=== PATIENT | female | born 1985 | race Two or more races ===

== ENCOUNTER 2017-06-06 18:44 | Emergency (ER) | payer MEDICAID ==
[~2017-06-06] VITALS: Ht 162.6 cm; Wt 59.0 kg
--- NOTE | 2017-06-06 19:28 | NUR ---
RECEIVED REPORT FOR [facility] FROM [facility]OX[facility] BARRAZA
--- NOTE | 2017-06-06 19:28 | NUR ---
PT BB SELF FROM HOME C/O N/V W/ ABD DISCOMFORT X THIS AM, FEELING WEAK. PT STATES HER DIARRHEA IS YELLOW IN COLOR AND ON AND OFF EMESIS SINCE MORNING. PT RESP EVEN AND NONE LABORED. SKIN PINK AND WARM. NO S/S OF ACUTE DISTRESS NOTED. ORAL MUCOSA PRESENT. PT PLACED ON MONITOR AND POX. AWAITING MD FOR EVAL.
[2017-06-06] MEDS ORDERED: IV NS 0.9% 1,000 ML BAG IV ONE (19:30)
[2017-06-06] MEDS ORDERED: ONDANSETRON HCL/PF 4 MG/2 ML VIAL ONE (19:30)
[2017-06-06] MEDS ORDERED: ONDANSETRON HCL/PF 4 MG/2 ML VIAL IVP ONE (19:30)
[2017-06-06 19:52] LABS: BASOPHILS # (AUTO) 0.1 /CMM (0.0-0.2); BASOPHILS % (AUTO) 0.4 % (0.0-2.0); HEMATOCRIT 38 % (33-45); HEMOGLOBIN 13.3 g/dL (11.5-14.8); LYMPHOCYTES # (AUTO) 0.4 /CMM (0.8-4.8); LYMPHOCYTES % (AUTO) 2.4 % (20.0-44.0); MEAN CORPUSCULAR HEMOGLOBIN 31 PG (26.0-33.0); MEAN CORPUSCULAR HGB CONC 35 g/dl (31.0-36.0); MEAN CORPUSCULAR VOLUME 87 fL (82-100); MONOCYTES # (AUTO) 0.2 /CMM (0.1-1.30); MONOCYTES % (AUTO) 1.5 % (2.0-12.0); NEUTROPHILS % (AUTO) 95.7 % (43.0-81.0); PLATELET COUNT (AUTO) 133 /CMM (150-450); RED BLOOD CELL COUNT(AUTO) 4.32 MIL/uL (4.0-5.2); WHITE BLOOD COUNT (AUTO) 14.7 K/uL (4.3-11.0)
[2017-06-06 19:57] LABS: INR 0.95 (0.85-1.15)
[2017-06-06 20:00] LABS: CREATININE 0.6 mg/dL (0.6-1.3); POTASSIUM 3.6 mmol/L (3.5-5.1)
[2017-06-06 20:05] LABS: ALBUMIN 4.2 g/dL (3.4-5.0); BILIRUBIN,DIRECT 0.2 mg/dL (0.0-0.2); BILIRUBIN,TOTAL 1.5 mg/dL (0.2-1.0); TOTAL PROTEIN, SERUM 8.1 g/dL (6.4-8.2)
--- NOTE | 2017-06-06 20:17 | NUR ---
PT AMBULATED WITH STEADY GAIT TO RESTROOM TO GIVE URINE SPECIMEN.
[2017-06-06 20:37] LABS: APPEARANCE,URINE Clear (CLEAR); BILIRUBIN,URINE Negative (NEGATIVE); BLOOD, URINE Negative Ery/uL (NEGATIVE); COLOR,URINE Yellow (YELLOW); KETONES,URINE Trace (NEGATIVE); LEUKOCYTE ESTERASE ,URINE Negative (NEGATIVE); NITRITE, URINE Negative (NEGATIVE); PH,URINE 5.5 (5.0-8.0); PROTEIN,URINE Negative (NEGATIVE); UGLUCOSE Negative (NEGATIVE); UROBILINOGEN,URINE 0.2 EU/dL (0.2)
[2017-06-06 21:27] VITALS: BP 98/60
--- NOTE | 2017-06-06 21:27 | NUR ---
Patient discharged to home in stable condition. Written and verbal after care instructions given. Patient verbalizes understanding of instruction.IV removed. Catheter intact and site benign. Pressure and 4x4 applied to site. No bleeding noted. pt ambulatory with a steady gait VITAL SIGNS WITHIN NORMAL LIMITS.
== END 2017-06-06 21:27 | disposition home or self-care (01) ==
LOC: ER 18:48
DX: R11.2 Nausea with vomiting, unspecified (principal); R19.7 Diarrhea, unspecified
CPT/HCPCS: 36415; 80048; 80076; 81001; 83690; 84703; 85025; 85730; 96361; 96374; 99284; A4606; J2405; J7030 ×2; Z7610; 81000-TC